=== PATIENT | female | born 1985 ===

== ENCOUNTER 2019-07-10 10:00 | Inpatient (IN) | payer OTHER ==
[~2019-07-10] VITALS: Ht 152.4 cm; Wt 54.4 kg
[2019-08-06] MEDS ORDERED: PRENATAL TABLE1 EAC1 PO (01:44)
== END 2019-08-08 13:20 | disposition home or self-care (01) | DRG 807 ==
LOC: OB/GYN 07-30 10:00 → LDR 08-06 01:23 → SURG-SUITE 08-06 09:33
PROVIDERS: ADMIT Obstetrics & Gynecology
PROC: 10E0XZZ Delivery of Products of Conception, External Approach (ICD-10-PCS; principal; 2019-08-06)
PROC: 0KQM0ZZ Repair Perineum Muscle, Open Approach (ICD-10-PCS; 2019-08-06)
PROC: 10907ZC Drainage of Amniotic Fluid, Therapeutic from Products of Conception, Via Natural or Artificial Opening (ICD-10-PCS; 2019-08-06)
PROC: 4A1HXCZ Monitoring of Products of Conception, Cardiac Rate, External Approach (ICD-10-PCS; 2019-08-06)
DX: O70.1 Second degree perineal laceration during delivery (principal); Z37.0 Single live birth; Z3A.41 41 weeks gestation of pregnancy

== ENCOUNTER 2019-07-24 09:10 | Outpatient (CLI) | payer OTHER | END 2019-07-24 10:01 | disposition home or self-care (01) | LOC: NST 09:10 | DX: O09.73 Supervision of high risk pregnancy due to social problems, third trimester (principal) ==

== ENCOUNTER → 2019-07-30 | Outpatient (CLI) | payer OTHER | END | disposition home or self-care (01) | LOC: OBS/DEL 17:55 → NST 17:55 | DX: Z34.83 Encounter for supervision of other normal pregnancy, third trimester (principal) ==

== ENCOUNTER 2019-08-03 09:15 | Outpatient (CLI) | payer OTHER | END 2019-08-03 10:22 | disposition home or self-care (01) | LOC: NST 09:15 | DX: Z34.83 Encounter for supervision of other normal pregnancy, third trimester (principal) ==

== ENCOUNTER 2019-08-05 13:40 | Outpatient (CLI) | payer OTHER ==
[2019-08-06] MEDS ORDERED: PRENATAL TABLE1 EAC1 PO (01:44)
== END 2019-08-05 14:00 | disposition home or self-care (01) ==
LOC: OBS/DEL 13:40
DX: O76 Abnormality in fetal heart rate and rhythm complicating labor and delivery (principal)